=== PATIENT | male | born 2000 | race Two or more races ===

== ENCOUNTER 2024-10-24 06:00 | Day surgery (SDC) | payer MEDICAID, SELFPAY ==
[2024-10-23 08:39] VITALS: BMI 26.2
[2024-10-23 10:04] LABS: Basophils # (Auto) 0.1 Thou/mm3 (0.0-0.2); Basophils % (Auto) 1 % (0-2.5); Eosinophils # (Auto) 0.3 Thou/mm3 (0.0-0.5); Eosinophils % (Auto) 4 % (0-10); Hematocrit 45.6 % (41.0-53.0); Hemoglobin 15.6 g/dL (13.5-16.0); Immature Granulocytes % (Auto) 1 % (0-0); Immature Granulocytes Auto 0.04 Thou/mm3 (0.00-0.00); Lymphocytes # (Auto) 2.7 Thou/mm3 (1.0-4.8); Lymphocytes % (Auto) 44 % (10-50); Mean Corpuscular HGB Conc 34.2 g/dl (31.0-37.0); Mean Corpuscular Hemoglobin 30.3 pg (25.0-35.0); Mean Corpuscular Volume 89 fL (80-100); Monocytes # (Auto) 0.4 Thou/mm3 (0.0-0.8); Monocytes % (Auto) 6 % (0-12); Neutrophils # (Auto) 2.8 Thou/mm3 (1.8-7.7); Neutrophils % (Auto) 44 % (37-80); Nucleated Red Blood Cell % 0 /100 WBC (0); Platelet Count 265 Thou/mm3 (140-440); RDW Standard Deviation 39.1 fL (35.1-43.9); Red Blood Count 5.15 Miln/mm3 (4.50-5.90); White Blood Count 6.2 Thou/mm3 (3.8-10.6)
[2024-10-23 10:16] LABS: Alanine Aminotransferase 22 U/L (10-49); Albumin, Serum 4.4 gm/dL (3.5-5.0); Albumin/Globulin Ratio 1.8 (1.2-2.2); Alkaline Phosphatase 103 U/L (46-116); Anion Gap 8 (7-16); Aspartate Amino Transferase 19 U/L (0-34); BUN/Creatinine Ratio 20 Ratio (12-20); Bilirubin,Total 0.4 mg/dL (0.3-1.2); Blood Urea Nitrogen 18 mg/dL (9-23); Carbon Dioxide 28.6 mMol/L (20.0-31.0); Chloride 106 mMol/L (98-107); Creatinine (Component) 0.9 mg/dL (0.6-1.3); Estimated Creatinine Clearance 121.4 mL/min (>60); Globulin 2.5 gm/dL (2.3-3.5); Glucose 101 mg/dL (74-106); INR 0.9 (0.9-1.3); Osmolality,Calculated 286 (275-295); Partial Thromboplastin Time 26.5 Seconds (22.0-36.0); Potassium 4.4 mMol/L (3.4-5.1); Prothrombin Time 10.4 Seconds (9.0-12.2); Sodium 143 mMol/L (136-145); Total Protein 6.9 gm/dL (5.7-8.2); eGFR > 60 See Note
[2024-10-24] VITALS (7 sets, daily range): BP systolic 113–150; BP diastolic 49–77; PULSE 57–74; RESP 13–20; TEMP 36.3–36.8; O2SAT 96–99; BMI 26.2
[2024-10-24] MEDS: RINGERS LACTATED 1000 ML 1,000 ML 20 ML IV (06:56)
--- NOTE | 2024-10-24 07:50 | CHAP ---
Visited briefly with patient and his and prayed with them.
--- NOTE | 2024-10-24 09:27 | PD.SUROPNT ---
Date of Procedure 10/24/24 Pre Op Diagnosis Symptomatic left inguinal hernia Post Op Diagnosis Same, indirect in type Procedure Repair of the left indirect inguinal hernia with high ligation of the sac. Findings Patient is found to have sac extending retirement into the cord structures. Floor of the inguinal canal and the internal ring were normal Procedure Description After the patient was given endotracheal anesthesia is lower abdomen was prepped with chloreprep solution and draped. Standard left t groin incision was made in the external oblique was reached. Incision was made over the external oblique and the patient was found to have a small sac next to the cord structures. The cord structures were encircled around a [place] drain and the sac was easily . It was opened and was found to contain no omentum or bowel.. Patient had a small opening in this hernial sac in the mouth of the internal ring was very narrow.. I suture ligated this with 2-0 chromic and then divided. Then I palpated the floor of the inguinal canal which appeared to be strong. I did not see any need for mesh. The internal ring also was not wide and therefore onlay patch was not required. Then external oblique was closed with running 2-0 Vicryl and subcutaneous tissues was approximated with 30 plain I injected half percent Marcaine with epinephrine for analgesia and the skin was closed with 4-0 Monocryl. Dressing was applied with Adaptic and 4 x 4 and the patient tolerated the procedure well and left operating room in stable condition. Anesthesia GETA Pathology / specimen None IVF Infused 800 Estimated Blood Loss 10 Surgeon Alexis Stoner MD Surgical Staff Operation Date: 10/24/24 08:00 Case Staff Anesthesiologist: Chad Musa RNrubber vulcanizing machine operator: Mesha Bravo
--- NOTE | 2024-10-24 09:36 | SUR.PHASEI ---
pt received from OR in recovery bay 2. pt obtunded, breathing unlabored on oxymask 8l, oral airway in place. v/s stable. pt dressing to right lower abd cdi. report received from Erika ALCALA and Dr. Musa.
--- NOTE | 2024-10-24 10:00 | SUR.PHASEI ---
pt able to tolerate oral fluids without difficulty swallowing or nausea/vomiting.
--- NOTE | 2024-10-24 10:37 | SUR.PHASEII ---
pt awake and alert, breathing unlabored on room air. v/s stable. pt dressing to lower right abd cdi. pt able to ambulate to wheelchair with steady gait. d/c instructions given with Ambar in room, all questions answered. pt d/c via wheelchair with all belongings.
== END 2024-10-24 10:37 | disposition home or self-care (01) ==
PROVIDERS: PCP Family Medicine; Referring Provider Surgery; Visit Provider Surgery
PROC: (CPT 49505; principal; 2024-10-24 08:00)
DX: K40.90 Unilateral inguinal hernia, without obstruction or gangrene, not specified as recurrent (principal)
CPT/HCPCS: 49505; 36415; 80053; 85025; 85610; 85730; A4217; A4649; J1100; J2250; J2371; J2704; J2765; J3010; J3490; J7120; A9270